=== PATIENT | male | born 1950 | race Caucasian/White ===

== ENCOUNTER → 2023-07-14 20:18 | Outpatient (REF) | payer MEDICARE, BC, SELFPAY | LOC: MRI 20:18 | PROVIDERS: ATTENDING PHYSICIAN Physician Assistant Medical; FAMILY PHYSICIAN Family Medicine | DX: M51.36 Other intervertebral disc degeneration, lumbar region (principal) | CPT/HCPCS: 72148 ==

== ENCOUNTER → 2024-06-03 12:12 | Outpatient (REF) | payer MEDICARE, BC, SELFPAY ==
[2024-06-03 13:02] LABS: Platelet Count 176 10^3/uL (130-400)
== END ==
LOC: REG 12:12
PROVIDERS: ATTENDING PHYSICIAN Family Medicine; REFERRING PHYSICIAN Orthopaedic Surgery Orthopaedic Surgery of the Spine
DX: D69.6 Thrombocytopenia, unspecified (principal)
CPT/HCPCS: 36415; 85049

== ENCOUNTER 2024-06-08 06:09 | Day surgery (SDC) | payer MEDICARE, BC, SELFPAY ==
[2024-05-31 13:30] VITALS: BMI 29.5
[2024-06-02 13:21] VITALS: BMI 29.5
[2024-06-08] VITALS (23 sets, daily range): BP systolic 126–203; BP diastolic 77–113; BMI 29.5
[2024-06-08] MEDS: CELEBREX 200 MG PO (09:12)
[2024-06-08] MEDS: LYRICA 150 MG PO (09:12)
[2024-06-08] MEDS: TYLENOL 1000 MG PO ×2 (09:13→16:42)
[2024-06-08] MEDS: NORMOSOL-R/PLASMALYTE-A 1000 IV ×2 (09:13→18:41)
[2024-06-08] MEDS: SKELAXIN 800 MG PO ×2 (09:13→16:41)
--- NOTE | 2024-06-08 09:18 | PTCARENOTE ---
Patients BP on arrival was 193/111. BP rechecked and was 190/107. Dr. Duarte made aware and orders for Apresoline 5 mg IV pre op. Will give to patient now. See MAR.
[2024-06-08] MEDS: APRESOLINE 5 MG PO (09:23)
--- NOTE | 2024-06-08 12:41 | W.DS.TRANS ---
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
-
Discharge Instructions:
Sleep Apnea Risk Intermediate
Discharge Diagnosis/Procedures L3-5 lami-fusion Jeong 06/08/24
Diet As tolerated
Activity No strenuous activity
Driving Restrictions No driving
Instructions:
Stand-Alone Forms: [facility] D/C Inst.
Changes to Home Medications: Yes
Discharge Medications:
DC Medications w/original date entered in [employer]
[place] 3 Fish Oil 4 cap PO DAILY 06/02/24
atorvastatin 10 mg tablet 10 mg PO HS 06/02/24
lisinopril 10 mg tablet 10 mg PO HS 06/02/24
Centrum 1 tab PO DAILY 06/08/24
Saccharomyces boulardii 250 mg capsule (Florastor) 250 mg PO BID #1 cap 06/08/24
acetaminophen 325 mg tablet (Tylenol) 650 mg (2 x 325 mg) PO QID #1 tab 06/08/24
cephalexin 500 mg capsule 500 mg PO QID infection prevention #20 caps 06/08/24
cyclobenzaprine 5 mg tablet 5 mg PO BID PRN muscle pain/sleep #30 tabs 06/08/24
dexamethasone 4 mg tablet 4 mg PO BID inflammation #6 tabs 06/08/24
docusate sodium 100 mg capsule (Colace) 100 mg PO BID stool softner #1 cap 06/08/24
gabapentin 300 mg capsule 300 mg PO HS sleep/pain #10 caps 06/08/24
magnesium hydroxide 400 mg/5 mL oral suspension (Milk of Magnesia) 30 ml PO HS PRN Constipation #1 mL 06/08/24
ondansetron 4 mg disintegrating tablet 4 mg PO Q6H PRN n/v #20 tabs 06/08/24
oxycodone 5 mg tablet 5 mg PO Q6H PRN 1 tab moderate pain, 2 tabs severe pain #30 tabs 06/08/24
sennosides 8.6 mg tablet (Senokot) 17.2 mg (2 x 8.6 mg) PO BID laxative #2 tabs 06/08/24
Home Medication Changes
Saccharomyces boulardii 250 mg capsule (Florastor) 250 mg PO BID #1 cap 06/08/24
acetaminophen 325 mg tablet (Tylenol) 650 mg (2 x 325 mg) PO QID #1 tab 06/08/24
cephalexin 500 mg capsule 500 mg PO QID infection prevention #20 caps 06/08/24
cyclobenzaprine 5 mg tablet 5 mg PO BID PRN muscle pain/sleep #30 tabs 06/08/24
dexamethasone 4 mg tablet 4 mg PO BID inflammation #6 tabs 06/08/24
docusate sodium 100 mg capsule (Colace) 100 mg PO BID stool softner #1 cap 06/08/24
gabapentin 300 mg capsule 300 mg PO HS sleep/pain #10 caps 06/08/24
magnesium hydroxide 400 mg/5 mL oral suspension (Milk of Magnesia) 30 ml PO HS PRN Constipation #1 mL 06/08/24
ondansetron 4 mg disintegrating tablet 4 mg PO Q6H PRN n/v #20 tabs 06/08/24
oxycodone 5 mg tablet 5 mg PO Q6H PRN 1 tab moderate pain, 2 tabs severe pain #30 tabs 06/08/24
sennosides 8.6 mg tablet (Senokot) 17.2 mg (2 x 8.6 mg) PO BID laxative #2 tabs 06/08/24
Pending Results: No
[2024-06-08] MEDS: ULTRAM 50 MG PO ×2 (16:42→21:40)
[2024-06-08] MEDS: ANCEF 5 IV (16:45)
[2024-06-08] MEDS: APRESOLINE 5 MG IV ×2 (16:58→17:21)
[2024-06-08] MEDS: SENOKOT PO (21:39)
[2024-06-08] MEDS: LYRICA 75 MG PO (21:40)
[2024-06-08] MEDS: COLACE 100 MG PO (21:40)
[2024-06-08] MEDS: LIPITOR 10 MG PO (21:40)
--- NOTE | 2024-06-08 22:00 | PTCARENOTE ---
Pt arrived from PACU at 2014. VSS. AAOX3. 2L NC. NV checks WNL. IVF infusing. currently Bedrest untill cleared by surgery. surgical dressing c/d/i. bed in lowest position and locked. oriented to room and call sharma.
[2024-06-08] MEDS: ZESTRIL 5 MG PO (22:54)
[2024-06-09] VITALS (8 sets, daily range): BP systolic 129–157; BP diastolic 73–97; PULSE 73–77
[2024-06-09] MEDS: SKELAXIN 800 MG PO ×2 (00:25→08:27)
[2024-06-09] MEDS: ANCEF 5 IV (00:25)
[2024-06-09] MEDS: ULTRAM 50 MG PO ×4 (00:25→11:30)
[2024-06-09] MEDS: TYLENOL 1000 MG PO ×4 (00:25→17:17)
[2024-06-09] MEDS: NORMOSOL-R/PLASMALYTE-A 1000 IV (04:14)
[2024-06-09 06:50] LABS: Hematocrit 42.7 % (39.0-52.0); Hemoglobin 14.9 g/dL (13.0-18.0)
[2024-06-09 07:28] LABS: Blood Urea Nitrogen 17 mg/dl (9-20); Calcium 8.3 mg/dl (8.4-10.2); Carbon Dioxide 24 mmol/L (22-30); Chloride 103 mmol/L (98-107); Estimated Creatinine Clearance 92 ml/min; Glucose 113 mg/dl (70-99); Sodium 136 mmol/L (135-145); eGFR > 60.00
--- NOTE | 2024-06-09 07:55 | W.DS.TRANS ---
Addendum entered and electronically signed by Rosa Cortez PA-C 06/10/24 17:18:
add amlodipine 5mg po daily Rx#30 1 refill
Addendum entered and electronically signed by Rosa Cortez PA-C 06/10/24 11:30:
increase Lisinopril to bid and f/u PCP
Original Note:
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
-
Discharge Instructions:
Sleep Apnea Risk Intermediate
Discharge Diagnosis/Procedures L3-5 lami-fusion Jeong 06/08/24
Diet As tolerated
Activity No strenuous activity
Driving Restrictions No driving
Instructions:
Stand-Alone Forms: [facility] D/C Inst.
Changes to Home Medications: No
Discharge Medications:
DC Medications w/original date entered in [email or web address]
[place] 3 Fish Oil 4 cap PO DAILY 06/02/24
atorvastatin 10 mg tablet 10 mg PO HS 06/02/24
lisinopril 10 mg tablet 10 mg PO HS 06/02/24
Centrum 1 tab PO DAILY 06/08/24
Saccharomyces boulardii 250 mg capsule (Florastor) 250 mg PO BID #1 cap 06/08/24
acetaminophen 325 mg tablet (Tylenol) 650 mg (2 x 325 mg) PO QID #1 tab 06/08/24
cephalexin 500 mg capsule 500 mg PO QID infection prevention #20 caps 06/08/24
cyclobenzaprine 5 mg tablet 5 mg PO BID PRN muscle pain/sleep #30 tabs 06/08/24
dexamethasone 4 mg tablet 4 mg PO BID inflammation #6 tabs 06/08/24
docusate sodium 100 mg capsule (Colace) 100 mg PO BID stool softner #1 cap 06/08/24
gabapentin 300 mg capsule 300 mg PO HS sleep/pain #10 caps 06/08/24
magnesium hydroxide 400 mg/5 mL oral suspension (Milk of Magnesia) 30 ml PO HS PRN Constipation #1 mL 06/08/24
ondansetron 4 mg disintegrating tablet 4 mg PO Q6H PRN n/v #20 tabs 06/08/24
oxycodone 5 mg tablet 5 mg PO Q6H PRN 1 tab moderate pain, 2 tabs severe pain #30 tabs 06/08/24
sennosides 8.6 mg tablet (Senokot) 17.2 mg (2 x 8.6 mg) PO BID laxative #2 tabs 06/08/24
Home Medication Changes
Pending Results: No
--- NOTE | 2024-06-09 07:55 | W.PN.SP ---
Today's Communication / Plan
-
s/p lami with arachnoid cyst
Elevate HOB
PT
D/c today if no issues/PORTER
Subjective / Objective
Subjective Data
PT doing well
Leg seems better
No PORTER
Objective Data
Vital Signs
Temp Pulse Resp BP Pulse Ox
97.5 F 87 16 131/79 94
06/09/24 07:15 06/09/24 07:15 06/09/24 07:15 06/09/24 07:15 06/09/24 07:15
Intake and Output
06/08/24 06/09/24 06/10/24
06:59 06:59 06:59
Intake Total 3200 / 3200
Output Total 800 / 800
Balance 2400 / 2400
Intake:
Oral fluids 1400 / 1400
IV fluids (Total) 1800 / 1800
Normosal 700 / 700
Output:
Urine, Voided 800 / 800
Lab Data
06/09/24 05:39
06/09/24 05:39
Physical Exam
-
Moving both LE good strenght
[2024-06-09] MEDS: SENOKOT 17.2 MG PO ×2 (08:27→20:48)
[2024-06-09] MEDS: COLACE 100 MG PO ×2 (08:27→20:48)
[2024-06-09] MEDS: LYRICA 75 MG PO (08:27)
--- NOTE | 2024-06-09 11:34 | W.PN.ORTHO ---
Today's Communication / Plan
-
d/c when stable
Assessment
.
Distal Motor Intact: Yes
Dressing:
Clean, dry and intact.
Assessment:
Dural tear
Functional impairment-PT stating unable to be d/c at mod I level at present--have requested both PT/OT revisit later today, if still requiring mod-max assist, will keep overnight and re-assess in am--would like to avoid SNF if possible
Plan
.
Surgery / Date: L3-5 lami-fusion Dr. Jeong 06/08/24
Activity:
Out of bed.
PT/OT
Subjective
.
.:
Patient resting comfortably.
Vital Signs and Labs
.
Vital Signs and Labs:
Lab Results
06/09/24 05:39
06/09/24 05:39
Temp Pulse Resp BP Pulse Ox
97.5 F 87 16 131/79 94
06/09/24 07:15 06/09/24 07:15 06/09/24 07:15 06/09/24 07:15 06/09/24 07:15
Physical Exam
-
HEENT: No pallor, cyanosis, or jaundice. Throat clear.
NECK: Supple. No JVD.
RESPIRATORY: Lungs clear to auscultation.
CVS: S1, S2 normal. RRR.� No murmur, rub or gallop.
ABDOMEN: Soft, non-tender. No distension. BS+/normal.
EXTREMITIES: strength equal, no calf pain with palpation
SUPERVISOR REMELT: AOx3. No focal deficits. 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
[2024-06-09] MEDS: NORMOSOL-R/PLASMALYTE-A IV (12:54)
--- NOTE | 2024-06-09 13:13 | CM ---
Reviewed the chart notes and spoke with the patient at the bedside. Patient s/p L3-5 lami-fusion. The patient resides with his spouse in a two story home with one step to enter. The patient reports only DME in home is shower grab [employer]. The
patient reports no VN or SNF in the past. The patient confirmed his pharmacy of choice is the [facility] and his PCP is Dr. Nguyen. Patient was evaluated this morning and is pending an additional evaluation this afternoon. CM
continues to be available to patient/family and is monitoring medical plan for needs at discharge.
Plan: Discharge plans will depend on the patient's progress.
[2024-06-09] MEDS: LIPITOR 10 MG PO (21:01)
[2024-06-09] MEDS: ZESTRIL 5 MG PO (21:01)
[2024-06-10] VITALS (13 sets, daily range): BP systolic 151–206; BP diastolic 85–124; PULSE 94; O2SAT 94–96
[2024-06-10] MEDS: TYLENOL 1000 MG PO ×4 (01:36→18:02)
[2024-06-10] MEDS: COLACE 100 MG PO ×2 (09:43→20:24)
[2024-06-10] MEDS: SENOKOT 17.2 MG PO ×2 (09:44→20:24)
--- NOTE | 2024-06-10 10:29 | W.PN.ORTHO ---
Today's Communication / Plan
-
d/c
Assessment
.
Distal Motor Intact: Yes
Dressing:
Clean, dry and intact.
Plan
.
Surgery / Date: L3-5 lami-fusion Dr. Jeong 06/08/24
Activity:
Out of bed.
PT/OT
Discharge Plan: Home
Subjective
.
.:
Patient resting comfortably.
Vital Signs and Labs
.
Vital Signs and Labs:
Lab Results
06/09/24 05:39
06/09/24 05:39
Temp Pulse Resp BP Pulse Ox
98.0 F 81 16 168/94 96
06/10/24 07:08 06/10/24 07:08 06/10/24 07:08 06/10/24 07:08 06/10/24 07:08
Physical Exam
-
HEENT: No pallor, cyanosis, or jaundice. Throat clear.
NECK: Supple. No JVD.
RESPIRATORY: Lungs clear to auscultation.
CVS: S1, S2 normal. RRR.� No murmur, rub or gallop.
ABDOMEN: Soft, non-tender. No distension. BS+/normal.
EXTREMITIES: strength equal, no calf pain with palpation
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 No focal deficits. 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
--- NOTE | 2024-06-10 10:57 | CM ---
Reviewed the chart notes. Patient ambulating ad luke in room without assistive device. Spouse to provide transportation home. CM continues to be available to patient/family and is monitoring medical plan for needs at discharge.
Plan: Discharge to home with no additional needs identified at this time.
[2024-06-10] MEDS: ZESTRIL 10 MG PO ×2 (12:07→20:25)
[2024-06-10] MEDS: ZESTRIL 5 MG PO (15:38)
[2024-06-10] MEDS: ROXICODONE 5 MG PO ×2 (15:38→22:47)
--- NOTE | 2024-06-10 17:24 | W.PN.UPDATE ---
Update Note
Progress Note Update
Patient's blood pressure continued to elevate requiring medication adjustments. Additional Rxs were provided and he will stay overnight on tele--EKG-recheck in am
[2024-06-10] MEDS: NORVASC 5 MG PO (17:59)
--- NOTE | 2024-06-10 18:48 | PTCARENOTE ---
frequent communication with ortho PA-Rosa Cortez throughout the day. elevated BP as recorded. discharge cancelled. pt placed on telemetry-reading SR-ST 90's. EKG completed-NSR. pt provided information about new medication-Norvasc and med
provided per MAR. pt verbalized understanding of need to stay overnight for BP monitoring. denies PORTER, or back pains. tolerated dinner. care ongoing.
[2024-06-10] MEDS: LIPITOR 10 MG PO (20:24)
[2024-06-10] MEDS: MELATONIN 5 MG PO (22:43)
[2024-06-10] MEDS: TYLENOL PO (23:52)
[2024-06-11] VITALS: BP 182/88
[2024-06-11 03:25] VITALS: BP 160/80
[2024-06-11] MEDS: TYLENOL 1000 MG PO (06:12)
[2024-06-11] MEDS: ROXICODONE 5 MG PO (06:14)
[2024-06-11 07:30] VITALS: BP 184/100
[2024-06-11 07:55] VITALS: BP 150/88
[2024-06-11] MEDS: SENOKOT 17.2 MG PO (07:56)
[2024-06-11] MEDS: ZESTRIL 10 MG PO (07:56)
[2024-06-11] MEDS: NORVASC 5 MG PO (07:56)
[2024-06-11] MEDS: COLACE 100 MG PO (07:56)
[2024-06-11 10:15] VITALS: BP 150/88; BP 158/98
== END 2024-06-11 11:30 | disposition home or self-care (01) ==
LOC: SDS 06:09
PROVIDERS: Physician Assistant Medical; ATTENDING PHYSICIAN Orthopaedic Surgery Orthopaedic Surgery of the Spine; FAMILY PHYSICIAN Family Medicine
DX: M48.062 Spinal stenosis, lumbar region with neurogenic claudication (principal); M41.80 Other forms of scoliosis, site unspecified; G96.191 Perineural cyst; Z87.891 Personal history of nicotine dependence
CPT/HCPCS: 63047; 63048; 36415; 72100; 76000; 80048; 85014; 85018; 87070; 93005; 97116; 97163; 97166; 97530; 97535; C1713; C1763

== ENCOUNTER → 2024-08-25 14:33 | Outpatient (REF) | payer MEDICARE, BC, SELFPAY ==
[2024-08-25 15:28] LABS: Blood Urea Nitrogen 19 mg/dl (9-20)
== END ==
LOC: REG 14:33
PROVIDERS: ATTENDING PHYSICIAN Orthopaedic Surgery Orthopaedic Surgery of the Spine; FAMILY PHYSICIAN Family Medicine
DX: M48.062 Spinal stenosis, lumbar region with neurogenic claudication (principal)
CPT/HCPCS: 36415; 82565; 84520

== ENCOUNTER → 2024-09-30 11:39 | Outpatient (REF) | payer MEDICARE, BC, SELFPAY | LOC: PAVMRI 11:39 | PROVIDERS: ATTENDING PHYSICIAN Orthopaedic Surgery Orthopaedic Surgery of the Spine; FAMILY PHYSICIAN Family Medicine | DX: M48.062 Spinal stenosis, lumbar region with neurogenic claudication (principal) | CPT/HCPCS: 72158; A9575 ==